=== PATIENT | male | born 1960 | race Two or more races ===

== ENCOUNTER → 2019-05-20 | Emergency (ER) | payer OTHER ==
[~2019-05-20] MED LIST: ALBUTEROL FS 2.5 MG/3 ML VIAL.NEB NEB ONE; ALBUTEROL FS 2.5 MG/3 ML VIAL.NEB ONE; IPRATROPIUM NEB FS 0.5 MG/2.5 ML AMPUL.NEB NEB ONE; IPRATROPIUM NEB FS 0.5 MG/2.5 ML AMPUL.NEB ONE; LISINOPRIL (20MG) 20 MG TABLET PO ONE; LISINOPRIL (20MG) 20 MG TABLET PO SCH; methylPREDNISolone SOD SUCC 125 MG/2ML VIAL IM ONE; methylPREDNISolone SOD SUCC 125 MG/2ML VIAL ONE
== END | disposition home or self-care (01) ==
DX: J45.901 Unspecified asthma with (acute) exacerbation (principal); I10 Essential (primary) hypertension; F10.10 Alcohol abuse, uncomplicated; F17.200 Nicotine dependence, unspecified, uncomplicated; Y90.9 Presence of alcohol in blood, level not specified; Z98.890 Other specified postprocedural states; Z88.0 Allergy status to penicillin; Z02.89 Encounter for other administrative examinations
CPT/HCPCS: 94640 ×2; 96372; 99284; J2930